=== PATIENT | female | born 1990 | race Caucasian/White ===

== ENCOUNTER 2023-04-02 10:46 | Inpatient (IN) | payer OTHER, SELFPAY ==
[2023-04-02] VITALS (17 sets, daily range): BP systolic 94–118; BP diastolic 58–81; PULSE 63–80; RESP 16–24; TEMP 36.5–37.2; TEMPC 36.3; O2SAT 96–100; BMI 28.6
--- NOTE | 2023-04-02 06:17 | W.ANESPRE ---
General Info Date of Service Date Performed: 04/02/23 Height: 5 ft 5 in Weight: 78 kg Body Mass Index (BMI): 28.6 Surgical Procedure: Operation Date: 04/02/23 13:10 Proposed Procedure Side Surgeon p Section possible Bi-lateral Salpingectomy Lillian Chavira MD Meds Allergies and Home Medications Allergies Allergy/AdvReac Type Severity Reaction Status Date / Time No Known Allergies Allergy Verified 03/30/23 10:32 Home Medication Medication Instructions Recorded vits no.126-ferrous fum tab PO QDAY 03/30/23 28 mg iron-folic acid 800 mcg tablet (Classic ) PFSH Active Problems Active Problems: Problem Status Onset Code Elderly multigravida, currently in third trimester O09.523 History of hemorrhage, currently O09.299 Failed external cephalic version O32.9XX0 Group B Streptococcus carrier, antepartum O99.820 Breech presentation of fetus O32.1XX0 Z34.90 Medical History Medical History (Updated 03/29/23 @ 14:50 by Jordyn Muniz) History of delivery 35 weeks PPROM History of premature rupture of membranes (PPROM) History of retained placenta in prior , currently Surgical History Surgical History (Updated 03/29/23 @ 13:47 by Jordyn Muniz) History of D&C for retained placenta History of lumbar discectomy History of arthroscopic knee surgery Prental History History 3 Para 2 Hx # Term Pregnancies 1 Multiple births Hx # Pregnancies 1 Ectopic pregnancies AB induced Hx Number of Living Children 2 AB spontaneous Past Pregnancies Del. Date GA/Weeks # Preg Succ Route Wgt Sex Labor Lgth Anesthesia Location Prov Complic 07/10/17 38 No Yes vaginal 3713.788 g Male [facility] Jossue Ramos 02/25/20 33 No Yes vaginal 2324.661 g Female [facility] Jossue Umanzor Delivery Date: 07/10/17 Last Updated by: Lillian Chavira MD 3rd degree laceration and retained placenta with D&C and 2U prbc. Delivery Date: 02/25/20 Last Updated by: Lillian Chavira MD Manual removal of placenta - ?submucosal fibroid. Given methergine, pit and miso prophylactically. Vital Signs and Lab Results Vital Signs Most Recent Vital Signs in EMR: Temp Pulse Resp BP Pulse Ox 36.6 C 73 16 111/68 97 04/02/23 11:08 04/02/23 11:08 04/02/23 11:08 04/02/23 11:08 04/02/23 11:08 Lab Results 04/02/23 11:10 Blood Type / Crossmatch: Patient ABO/Rh O Positive 04/02/23 Antibody Screen NEGATIVE 04/02/23 Complete Blood Count: White Blood Count 8.68 10^3/uL (4.4-10.8) 04/02/23 11:10 Red Blood Count 4.04 10^6/uL (3.93-5.22) 04/02/23 11:10 Hemoglobin 12.6 g/dL (11.2-15.7) 04/02/23 11:10 Hematocrit 37.5 % (36.0-46.0) 04/02/23 11:10 Platelet Count 229 10^3/uL (130-400) 04/02/23 11:10 Complete Metabolic Panel: No Data to Display Liver Function Panel: No Data to Display Coagulation Panel: No Data to Display Cardiac Panel: No Data to Display Arterial Blood Gas: No Data to Display Venous Blood Gas: No Data to Display Pancreas Panel: No Data to Display Thyroid Panel: No Data to Display Infectious Disease: No Data to Display Blood Cultures: No Data to Display Toxicology Panel: No Data to Display Panel: No Data to Display Anesthesia Assessment and Plan Anesthesia History Personal History: No History of Anesthesia Complications Family History: No Family History of Anesthesia Complications Exercise Tolerance Exercise Tolerance: Metabolic Equivalents>4 Cardiac & Pulmonary Exam Cardiac Exam: Normal S1/S2 Heart Sounds Pulmonary Exam: Clear Bilateral Breath Sounds Implantable Cardiac Device Does patient have a Pacemaker or an ICD?: No Airway Exam Known Difficult Airway: No Mallampati Class: 2 Mouth Opening: Normal (> 3cm) Thyromental Distance: Greater than 3 cm Neck Range of Motion: Full ROM Neck Circumference: Normal Teeth Condition: Normal Dentition ASA Classification ASA Score: ASA 2 Emergency Case?: No NPO Status NPO Status: NPO Clears >2 hours, Solids >8 hours Status Status: Confirmed Anesthesia Plan Resuscitation Status: Full Code Anesthesia Technique: Spinal Anesthesia Airway Planned: Natural Airway Monitors Used: Standard Monitors Preoperative Comments:: 33 yo female for c section due to breech presentation. Previous PPH due to retained placenta resulting in 1500 EBL, and PRBC transfusion. Sig PMHx: anemia, sciatica, lumbar spondylosis with discectomy at L4-5, never smoker. Previous Anes: - ECV [facility] [place], spinal 1 attempt, 15 mg bupivacaine 0.75%, 20 mcg fent, phenyl gtt. did have nausea once back in her room due to hypotension. ? 2 attempts, one was very uncomfortable for attempts.
[2023-04-02 11:30] LABS: HCT 37.5 % (36.0-46.0); HGB 12.6 g/dL (11.2-15.7); MCH 31.2 pg (27.0-33.0); MCHC 33.6 % (32.0-36.0); MCV 93 fL (80-95); MPV 10.6 fL (8.0-11.0); Platelet Count 229 10^3/uL (130-400); RBC 4.04 10^6/uL (3.93-5.22); RDW 12.2 % (11.7-14.6); RDW-SD 41.5 fL; WBC 8.68 10^3/uL (4.4-10.8)
--- NOTE | 2023-04-02 12:01 | W.PM.OBHPL1 ---
Date of service: 04/02/23 Time of Service: 12:11 Assessment and Plan Assessment and plan (1) Failed external cephalic version: Status: Acute Assessment and plan: Plan PCS and BTL 2 IVs due to h/o retained placenta and pph. Pt confirmed desire for permanent sterilization via BTL OB-HPI Labor/Delivery History of Present Illness Reason for Visit: Delivery Chief Complaint: Scheduled Section , Inidcation for Scheduled : Unsuccessful Version.. ARLENE Calculator Estimated Delivery Date Method Current WG Current Estimate 04/09/23 LMP (Certain) 39w 0d History of Present Expected Delivery Route/Plan PCS - breech Specific Issues/Plan 1. Breech presentatio - Unsuccessful ECV at [facility] [place] [place] 03/27 - PCS planned 04/02 2. Prior retained placenta with D&C and PPH (1st ) 3. Hx PPH with 1500ml EBL & 2U prbc 1st . 750 ebl for 2nd delivery. 4. Prior PPROM and delivery @35wks 5. AMA 6. GBS+ 7. Desires permanent sterilization Review of Systems Genitourinary Genitourinary: Reports system reviewed and no additional complaints, except as documented PFSH All Active Problems (Updated 03/29/23 @ 14:50 by Jordyn Muniz) Elderly multigravida, currently in third trimester (Acute) Failed external cephalic version (Acute) Attempted @ [facility] [place] [place] 03/27/23, epidural & terb, unsuccessful Group B Streptococcus carrier, antepartum (Acute) tested 03/11/23 Breech presentation of fetus (Acute) History of hemorrhage, currently (Acute) (Acute) Medical History (Updated 03/29/23 @ 14:50 by Jordyn Muniz) History of delivery 35 weeks PPROM History of premature rupture of membranes (PPROM) History of retained placenta in prior , currently Surgical History (Updated 03/29/23 @ 13:47 by Jordyn Muniz) History of D&C for retained placenta History of lumbar discectomy History of arthroscopic knee surgery Social History Smoking/Tobacco Use Status: Never Smoking risk assessment performed?: Yes Alcohol Intake: former Substance use type: does not use Housing: house Current gender identity: female Female Reproductive History Menstrual Age of Menarche: 12 control method: other ( has vasectomy planned) History History 3 Para 2 Hx # Term Pregnancies 1 Multiple births Hx # Pregnancies 1 Ectopic pregnancies AB induced Hx Number of Living Children 2 AB spontaneous Past Pregnancies Del. Date GA/Weeks # Preg Succ Route Wgt Sex Labor Lgth Anesthesia Location Prov Complic 07/10/17 36 No Yes vaginal 8 lb [address] [facility] Jossue Ramos 02/25/20 33 No Yes vaginal 5 lb [address] [facility] - Dr. Umanzor Delivery Date: 07/10/17 Last Updated by: Lillian Chavira MD 3rd degree laceration and retained placenta with D&C and 2U prbc. Delivery Date: 02/25/20 Last Updated by: Lillian Chavira MD Manual removal of placenta - ?submucosal fibroid. Given methergine, pit and miso prophylactically. Meds Allergies and Home Medications Allergies Allergy/AdvReac Type Severity Reaction Status Date / Time No Known Allergies Allergy Verified 03/30/23 10:32 Home Medications Medication Instructions Recorded Confirmed Type vits no.126-ferrous fum tab PO QDAY 03/30/23 03/30/23 History 28 mg iron-folic acid 800 mcg tablet (Classic ) Exam Physical Exam Vital signs: Temp Pulse Resp BP Pulse Ox 97.9 F 73 16 111/68 97 04/02/23 11:08 04/02/23 11:08 04/02/23 11:08 04/02/23 11:08 04/02/23 11:08 Vital Signs Reviewed: Yes Detailed Labor and Delivery Exam Robles Score: Cervical Points Exam 0 1 2 3 Dilation Closed 1-2cm 3-4 cm 5-6cm Effacement 0-30% 40-50% 60-70% 80% Consistency Firm Medium Soft Station -3 -2 -1,0 +1,+2 Position Posterior Mid Anterior Fetus A Heart Rate Baseline: 135 Monitor Accelerations: 15 X 15 Monitor Decelerations: None Variability: Moderate (6-25 BPM) Presentation: Breech Categories: Category I HEENT Exam HEENT Exam: Normal Respiratory Exam Respiratory Exam: Normal Cardiovascular Exam Cardiovascular Exam: Normal Extremities Exam Extremities Exam: Normal Results Results Group Beta Strep: Positive Blood Type: O+ Risk Assessment Risk for Shoulder Dystocia Increased Risk?: No Risk for Pre-Eclampsia Daily Dose ASA Indicated: No Risk for Post- Hemorrhage At Risk?: Yes Risks Reviewed Risks Reviewed Upon Admission: Yes
[2023-04-02] MEDS: Lactated Ringers 1,000 ML 125 ML IV (12:30)
[2023-04-02] MEDS: AZITHROMYCIN 500 MG in Normal Saline 250 ML 250 MG IVPB (12:32)
[2023-04-02] MEDS: Normal Saline Flush 10 ML SYR IVP (12:33)
[2023-04-02] MEDS: ceFAZolin 2 GM/50 ML BAG IVPB (12:33)
[2023-04-02] MEDS: Sodium Citrate 30 ML CUP PO (12:33)
--- NOTE | 2023-04-02 13:30 | PLAC_PTH ---
PATIENT: Rosaline Son LOC: OBS U#:[id number] AGE/SX: 33/F ROOM: OBS.305 RE04/02/[address]: Lillian Chavira MD : 1990 BED: A DIS: 04/04/2023 SPEC #: [id number] RECD: 04/02/23 18:26 STATUS: LUIS REQ #: [id number] KENNEDY: 04/02/23 13:[address]: Lillian Chavira DEPT: Surgical Specimen RECD BY: Yeny Jurado ENTERED: 04/02/23 18:27 SP TYPE: PLAC OTHR DR: Unknown,Unknown Tissues: 1 - PLACENTA (3RD TRIMESTER) 2 - FALLOPIAN TUBE (STERILIZATION) Procedures: GROSS AND MICRO LEVEL 2 GROSS AND MICRO LEVEL 5 Comments: [id number]
[2023-04-02] MEDS: Bupivacaine 0.25% Pres-Free 30 ML VIAL (13:53)
--- NOTE | 2023-04-02 14:25 | ROE_ITS ---
Date of service: 04/02/23 Time of Service: 13:00 Operative Note Operative Note DATE OF PROCEDURE: 04/02/23 PRE-OP DIAGNOSIS: IUP @39wks, breech presentation, unsuccessful ECV. Satisfied parity. POST-OP DIAGNOSIS: same PROCEDURE: PLTCS, B/L salpingectomy SURGEON: Lillian Chavira ASSISTING SURGEON: Angelic Lora Refer to Anesthesia Record ESTIMATED BLOOD LOSS: 900 COMPLICATIONS: None Patient was transported to: floor Patient's condition: stable Indications: P2 @39wks GA with breech presentation and unsuccessful ECV last week. Desires permanent sterilization. Findings: Normal appearing external uterus, ovaries and tubes. The endometrium did not have a distinct septum but did have an area of thickened tissue on the midline posterior wall to which the placenta was adherent. Vigorous female . Procedure Description: After informed consent was signed the patient was taken to the operating room. She was given spinal anesthesia, SCDs were placed on her legs and a adair catheter was introduced into her bladder. The heart rate was checked and was normal. She underwent abdominal and vaginal prep and was draped in the dorsal supine position with a leftward tilt. The patient was tested and spinal anesthesia was found to be adequate. A time out was performed. The skin was injected with bupivocaine along the length of the planned incision.A skin incision was made with the scalpel and carried down to the underlying layer of fascia with blunt dissection. The fascia was incised on either side of the midline and the fascial incision extended laterally with a combination of sharp and blunt dissection. The inferior edge of the fascia was grasped with milo clamps and tented up and dissected down with a combination of sharp and blunt dissection. Then the superior edge of the fascial incision was grasped with milo clamps and tented up and dissected down with a combination of sharp and blunt dissection. The rectus muscles were in the midline and the peritoneum was entered bluntly. The peritoneal incision was extended laterally with blunt dissection. The bladder blade was inserted. A transverse incision was made in the lower uterine segment with the scalpel. The incision was extended superiorly and inferiorly with blunt pressure. The infant's breech was delivered followed by the legs and torso. The arms were internally rotated and the head was delivered in flexed position. The cord was milked toward the baby and after 1min it was clamped x2 and cut. The baby was handed to the assembler musical equipment. Cord blood was collected. The placenta delivered with fundal massage and gentle cord traction and appeared to be intact though was adherent to the posterior midline uterine wall. The uterus was exteriorized and cleared of clots and debris. The uterine incision was closed with 0-vicryl in a running locked fashion with a second layer of suture imbricating the first. Good hemostasis was noted. Attention was turned to the tubes. The right tube was followed to the fibriated end. The mesosalpinx was clamped, cauterized and cut with the ligasure device along the length of the tub until the proximal end was transected. This was repeated on the right side and good hemostasis was noted on both sides. The uterus was placed back into the abdominal cavity. Clots were cleared from the peritoneal cavity with lap sponges. The incision was inspected once again and good hemostasis was noted. There was good hemostasis of the rectus muscles. The fascia was closed with 0- vicryl in a running unlocked fashion. The subcuticular layer was irrigated and closed with interrupted sutures of 3-0 vicryl. The skin was closed with 4-0 vicryl in a running subcuticular fashion. The incision was cleaned. Mastisol and steristrips were placed. A dressing was placed. The fundus was palpated to be firm. The patient was moved to the stretcher and taken to the recovery room in stable condition.
--- NOTE | 2023-04-02 14:33 | W.ANESPOSTOP ---
Postoperative Evaluation Date, Time and Location Date Performed: 04/02/23 Time Performed: 14:34 Patient Location: Obstetrics Vital Signs Most Recent Imported Vital Signs: Most Recent Vital Signs Temp Pulse Resp BP Pulse Ox 36.6 C 77 16 118/81 97 04/02/23 11:08 04/02/23 12:41 04/02/23 11:08 04/02/23 12:40 04/02/23 12:41 Most Recent Manually Entered Vital Signs: Adult Blood Pressure: 109/65 Heart Rate: 73 Respirations: 24 Oxygen Saturation (%): 96 Temperature (C): 36.3 C Pain Score (0-10 Scale): 0 Pain Score Most Recent Pain Score: spinal still in effect. Assessment Mental Status: Awake (Alert & Oriented to Patient Baseline) Airway and Respiratory Function: Patent airway with normal (patient baseline) respiratory exam Cardiovascular Function: Hemodynamically Stable Hydration Status: Adequately Hydrated Nausea & Vomiting: No Nausea or Vomiting Pain: Pt. Denies Any Pain Peripheral Nerve Block: Patient did not receive a nerve block
[2023-04-02] MEDS: Lactated Ringers 1,000 ML 120 ML IV (20:28)
[2023-04-02] MEDS: Ketorolac 30 MG/ML VIAL IVP (20:28)
[2023-04-03] VITALS (7 sets, daily range): BP systolic 94–107; BP diastolic 54–69; PULSE 63–88; RESP 16; TEMP 36.4–37; O2SAT 97–98
[2023-04-03] MEDS: Ketorolac 30 MG/ML VIAL IVP ×2 (02:01→08:08)
[2023-04-03 06:45] LABS: Abs Immature Grans 0.09 10^3/uL (0.0-0.06); Absolute Basophil Count 0.04 10^3/uL (0.0-0.2); Absolute Eosinophil Count 0.03 10^3/uL (0.0-0.7); Absolute Lymphocyte Count 1.01 10^3/uL (1.2-3.4); Absolute Monocyte Count 0.31 10^3/uL (0.1-0.8); Absolute Neutrophil Count 8.09 10^3/uL (1.2-6.7); Basophils % 0.4; Eosinophils % 0.3; HCT 31.6 % (36.0-46.0); HGB 10.8 g/dL (11.2-15.7); Immature Grans % 0.9; Lymphocytes % 10.6; MCH 31.5 pg (27.0-33.0); MCHC 34.2 % (32.0-36.0); MCV 92 fL (80-95); MPV 10.3 fL (8.0-11.0); Monocytes % 3.2; Neutrophils % 84.6; Platelet Count 211 10^3/uL (130-400); RBC 3.43 10^6/uL (3.93-5.22); RDW 12.5 % (11.7-14.6); RDW-SD 42.2 fL; WBC 9.57 10^3/uL (4.4-10.8)
[2023-04-03] MEDS: Docusate Sodium 100 MG CAP PO ×2 (08:07→18:48)
[2023-04-03] MEDS: Normal Saline Flush 10 ML SYR IVP (08:09)
--- NOTE | 2023-04-03 12:37 | W.PM.OBPNV1 ---
Date of service: 04/03/23 Time of Service: 12:00 Assessment and Plan Assessment and plan (1) Status post section routine follow-up: Status: Acute Assessment and plan: POD#1 s/p PCS, pt is doing very well. Anticipate d/c home tomorrow. Will remove dressing later today. She has a 2wk post-op visit already scheduled. Subjective Subjective Interval history: Pt is feeling well. Ambulating without difficulty. Pain is well controlled. Minimal lochia. Tolerating oral intake without n/v. +flatus. Breast-feeding is going well. Exam Physical Exam Vital signs: Temp Pulse Resp BP Pulse Ox 97.5 F L 83 16 107/66 98 04/03/23 11:53 04/03/23 11:53 04/03/23 11:53 04/03/23 11:53 04/03/23 11:53 Vital Signs Reviewed: Yes Constitutional Constitutional: no acute distress and cooperative Detailed HEENT Exam Head: Present normocephalic and atraumatic Respiratory Exam Respiratory Exam: Normal Abdominal Exam Abdomen: Tender (mildly) Comments: Dressing clean & dry Fundal Exam Fundus: Below Umbilicus and Firm Extremities Exam Comment: no edema, no calf tenderness Detailed Neurological Exam Neurological: Present alert, oriented X3 and CN II-XII intact Results Hemoglobin/Hematocrit: Hgb 10.8 g/dL (11.2-15.7) L 04/03/23 06:30 Hct 31.6 % (36.0-46.0) L 04/03/23 06:30 Abnormal Lab Findings: Abnormal Labs 04/03/23 06:30 RBC 3.43 L Hgb 10.8 L Hct 31.6 L Absolute Neutrophils 8.09 H Absolute Lymphocytes 1.01 L
[2023-04-03] MEDS: Acetaminophen 325 MG TAB 650 MG PO ×2 (14:57→18:49)
[2023-04-03] MEDS: Ibuprofen 600 MG TAB PO (18:48)
[2023-04-04 00:05] VITALS: BP 100/62; PULSE 72; RESP 16; TEMP 36.7; O2SAT 99
[2023-04-04] MEDS: Ibuprofen 600 MG TAB PO ×2 (02:34→08:20)
[2023-04-04] MEDS: Acetaminophen 325 MG TAB 650 MG PO ×2 (02:35→08:20)
[2023-04-04 07:51] VITALS: BP 111/78; PULSE 77; RESP 18; TEMP 37.1; O2SAT 98
--- NOTE | 2023-04-04 08:12 | DSE_ITS ---
Date of service: 04/04/23 Time of Service: 08:12 DS: Diagnosis Discharge Diagnosis (1) History of female sterilization: Status: Acute (2) History of section: Discharge Plan Disposition Patient Disposition: Home Condition: Stable Discharge Details Reason For Visit: Delivery Admit Date/Time: 04/02/23 10:46 Admit Provider: Lillian Chavira Attending Provider: Lillian Chavira Primary Care Provider: Unknown,Unknown Hospital Course Hospital Course: Patient is a 33-year-old female who was admitted the morning of surgery and underwent a primary low transverse delivery on 04/02/2023. She previously undergone an unsuccessful external cephalic version on 03/27/2023 at [facility] [place] [place]. She decided to have her primary delivery closer to home at [facility]. Patient requested a permanent tubal sterilization at the time of . Surgery was uncomplicated she was discharged home on postop day 2 successfully voiding taking regular diet. Pain was controlled with nonsteroidal anti- inflammatories. She declined narcotics. Patient is breast-feeding at the time of discharge she will follow-up for is inspection of the Pfannenstiel skin incision in 2 weeks. Home Meds and New Rx's Prescriptions: No Action Classic 28 mg iron- 800 mcg tablet PO QDAY Discharge Instructions Stand Alone Forms: BC Instructions, BC Discharge Instruc Activity:: Activity as Tolerated Equipment/Supplies:: No Equipment Needed Diet:: As Tolerated Discharge Orders Discharge Orders: Discharge Order (Routine); Ordered 04/04/23 Ordered By: Susan Marie OB:DS Summary Summary Delivery Method: Primary Episiotomy Description: None Laceration Description: None Laceration Extension: N/A complications OB DS: none Procedures: Bilateral tubal sterilization at the time of delivery Contraception Discussed Contraception Discussed: No (Patient had permanent sterilization at the time of delivery), Gender-Baby A: Female weight: 6 lb 10.88 oz Disposition of Baby B: Home (Her parents intend to name her Marla) Status at Discharge Functional status at discharge: independent ambulation Overall status at discharge: patient is progressing back to baseline Mental Status: mental status grossly normal Speech and Movement: speech and movement normal Mood: congruent mood Affect: normal affect Time Spent with Patient providing and/or coordinating discharge services: Less than 30 minutes Exam Physical Exam Vital signs: Temp Pulse Resp BP Pulse Ox 98.8 F 77 18 111/78 98 04/04/23 07:51 04/04/23 07:51 04/04/23 07:51 04/04/23 07:51 04/04/23 07:51 Vital Signs Reviewed: Yes Narrative: Postop day 2 primary low transverse delivery for breech presentation after a unsuccessful external cephalic version. Patient reports pain has been controlled with NSAIDs. She declines narcotics. She is ready for discharge to home. Constitutional Constitutional: no acute distress Neck Exam Neck Exam: Normal Respiratory Exam Respiratory Exam: Normal Cardiovascular Exam Cardiovascular Exam: Normal Abdominal Exam Abdomen: Other (Pfannestiel skin incision clean dry and intact Steri-Strips in place) Fundal Exam Fundus: Below Umbilicus Rectal Exam Rectal Exam: Not Done Extremities Exam Extremity Exam: Normal Back/Spine/Pelvis Exam Back Exam: Normal Skin Exam Skin Exam: Normal Neurological Exam Neurological Exam: Normal Psychiatric Exam Psychiatric Exam: Normal PFSH All Active Problems (Updated 04/04/23 @ 08:15 by Susan Marie MD) History of female sterilization (Acute) 04/02/23 at time of delivery Medical History (Updated 04/04/23 @ 08:15 by Susan Marie MD) History of delivery 35 weeks PPROM History of premature rupture of membranes (PPROM) History of retained placenta in prior , currently Surgical History (Updated 04/04/23 @ 08:15 by Susan Marie MD) Status post section routine follow-up History of section 04/02/23 for breech, unsuccessful ECV. Tubal sterilization performed. History of D&C for retained placenta History of lumbar discectomy History of arthroscopic knee surgery Social History Smoking/Tobacco Use Status: Never Smoking risk assessment performed?: Yes Alcohol Intake: former Substance use type: does not use Housing: house Current gender identity: female Female Reproductive History Menstrual Age of Menarche: 12 control method: other ( has vasectomy planned) History History 3 Para 3 Hx # Term Pregnancies 1 Multiple births Hx # Pregnancies 1 Ectopic pregnancies AB induced Hx Number of Living Children 3 AB spontaneous Past Pregnancies Del. Date GA/Weeks # Preg Succ Route Wgt Sex Labor Lgth Anesth esia Location Prov Complic 02/09/18 38 No Yes vaginal 8 lb 3 oz Male [facility] - Dr. Ramos 02/25/20 33 No Yes vaginal 5 lb 2 oz Female [facility] - Dr. Umanzor 04/02/23 37 No Yes Female [facility] Delivery Date: 07/10/17 Last Updated by: Lillian Chavira MD 3rd degree laceration and retained placenta with D&C and 2U prbc. Delivery Date: 02/25/20 Last Updated by: Lillian Chavira MD Manual removal of placenta - ?submucosal fibroid. Given methergine, pit and miso prophylactically. Delivery Date: 04/02/23 Last Updated by: Susan Marie MD Breech s/p unsuccessful ECV. Bilateral tubal sterilization. Viky Gutiérrez DS: Data Vitals/I&O Vitals and I&O: Vital Signs Temperature 98.8 F 04/04/23 07:51 Temperature Source Oral 04/04/23 07:51 Pulse 77 04/04/23 07:51 Pulse Rhythm Regular 04/04/23 07:51 Respiratory Rate 18 04/04/23 07:51 Respiratory Effort Normal, Non-Labored 04/02/23 11:32 Respiratory Depth Normal 04/02/23 20:00 Respiratory Pattern Normal 04/02/23 11:32 Blood Pressure 111/78 04/04/23 07:51 Blood Pressure Mean 89 04/04/23 07:51 Pulse Oximetry 98 04/04/23 07:51 Oxygen Delivery Method Room Air 04/02/23 11:08 Oxygen Flow Rate 0 04/02/23 11:08 Pain Level 0 04/04/23 07:51 Intake & Output 04/03/23 04/03/23 04/04/23 11:59 23:59 11:59 Intake Total 916 / 916 Output Total 2100 / 3800 1700 / 3800 Balance -1184 / -2884 -1700 / -2884 Intake: IV 916 / 916 Output: Urine 2100 / 3800 1700 / 3800 Other: Urine Color Yellow Yellow Yellow Urine Appearance Clear Clear Urine Odor None Voiding Methods Toilet
[2023-04-04] MEDS: Docusate Sodium 100 MG CAP PO (08:20)
== END 2023-04-04 11:07 | disposition home or self-care (01) | DRG 785 ==
PROVIDERS: Admitting Provider Obstetrics & Gynecology; Visit Provider Obstetrics & Gynecology
PROC: 10D00Z1 Extraction of Products of Conception, Low, Open Approach (ICD-10-PCS; CPT 59514; principal; 2023-04-02 13:00)
DX: O32.1XX0 Maternal care for breech presentation, not applicable or unspecified (principal); Z3A.39 39 weeks gestation of pregnancy; Z37.0 Single live birth; O99.824 Streptococcus B carrier state complicating childbirth; O73.0 Retained placenta without hemorrhage; Z30.2 Encounter for sterilization
CPT/HCPCS: 59514; 58700; 36415; 85027; 86850; 86900; 86901; 85025; 88302; 88307; J0131; J0456; J0690; J1100; J1885; J2371; J2405; J3010